=== PATIENT | female | born 1970 | race Caucasian/White ===

== ENCOUNTER → 2017-07-09 07:17 | Outpatient (CLI) | payer BC, SELFPAY ==
[2017-07-09 08:21] LABS: Alanine Aminotransferase 20 U/L (12-78); Albumin Level 3.6 gm/dL (3.4-5.0); Albumin/Globulin Ratio 1.1 (1.1-1.8); Alkaline Phosphatase 73 U/L (46-116); Anion Gap 11.3 mEq/L (5-15); Aspartate Amino Transferase 17 U/L (15-37); Bilirubin,Total 0.6 mg/dL (0.2-1.0); Blood Urea Nitrogen 11 mg/dL (7-18); Calcium 8.7 mg/dL (8.5-10.1); Carbon Dioxide 28 mmol/L (21.0-32.0); Chloride 106 mmol/L (98-107); Chol/HDL Ratio 2.4 (1-3.5); Cholesterol 139 mg/dL (140-200); Estimated Glomerular Filt Rate 90 ml/min (>60); Free Thyroxine Index 2.1 ug/dL (5.93-13.13); GFR (African American) 109 ML/MIN (>60); Globulin 3.4 gm/dl (1.3-3.2); Glucose 93 mg/dL (74-106); HDL Cholesterol 57 mg/dL (29-89); LDL Cholesterol 76 mg/dL (0-130); Potassium 4.3 mmoL/L (3.5-5.1); Sodium 141 mmol/L (136-145); T4 (Thyroxine) 6.3 ug/dl (4.7-13.3); Triglycerides 29 mg/dL (30-200); Triiodothryronine (T3) Uptake 34 % (31-39); VLDL Cholesterol 6 mg/dL (0-40)
[2017-07-09 08:43] LABS: Thyroid Stimulating Hormone 2.62 uIU/ml (0.358-3.740)
[2017-07-09 08:52] LABS: Basophils % 0.7 % (0.1-2.0); Eosinophils # 0.2 K/mm3 (0.0-0.4); Eosinophils % 2.9 % (0.1-12.0); Hematocrit 40.9 % (37.0-47.0); Hemoglobin 13.7 g/dL (12.2-16.2); Lymphocytes # 1.8 K/mm3 (0.7-4.5); Lymphocytes % 30.8 K/mm3 (10-50); Mean Corpuscular HGB Conc 33.4 g/dL (31.8-35.4); Mean Corpuscular Hemoglobin 30.5 pg (27.0-31.2); Mean Corpuscular Volume 91.4 fl (81-99); Mean Platelet Volume 9.2 fl (7.4-10.4); Monocytes # 0.3 K/mm3 (0.1-1.0); Monocytes % 5.8 % (1.7-9.3); Neutrophils # 3.6 K/mm3 (1.8-7.8); Neutrophils % 59.8 % (37.0-80.0); Platelet Count 152 K/mm3 (142-424); Red Blood Count 4.48 M/mm3 (4.20-5.40); Red Cell Distribution Width 12.4 % (11.5-17.5); White Blood Count 5.9 K/mm3 (4.8-10.8)
== END ==
PROVIDERS: Visit Provider Nurse Practitioner Obstetrics & Gynecology
DX: R53.83 Other fatigue (principal); Z01.419 Encounter for gynecological examination (general) (routine) without abnormal findings
CPT/HCPCS: 36415; 80053; 80061; 84436; 84443; 84479; 85025

== ENCOUNTER → 2018-03-05 10:56 | Outpatient (CLI) | payer BC, SELFPAY ==
--- NOTE | 2018-03-05 11:06 | XR_ITS ---
XR foot RT min 3V HISTORY: Pain following injury ITS.REASON: RT FOOT INJURY ORDERING PHYSICIAN: Kami Aquino PATIENT AGE: 47 years COMPARISON: None FINDINGS: No fracture or dislocation. No lytic or blastic change. There is normal mineralization.. The joint spaces are well-preserved. No significant degenerative/arthritic changes. No erosive changes evident. IMPRESSION: Negative, no acute finding
== END ==
PROVIDERS: PCP Nurse Practitioner Family; Visit Provider Nurse Practitioner Family
DX: S99.921A Unspecified injury of right foot, initial encounter (principal)
CPT/HCPCS: 73630

== ENCOUNTER → 2018-08-20 14:05 | Outpatient (POV) | payer BC, SELFPAY | PROVIDERS: Visit Provider Dermatology | DX: Z00.00 Encounter for general adult medical examination without abnormal findings (principal) ==

== ENCOUNTER → 2019-11-14 08:59 | Outpatient (CLI) | payer BC, SELFPAY ==
[2019-11-14 09:23] LABS: Basophils # 0.1 K/mm3 (0-0.2); Basophils % 1.3 % (0.1-2.0); Eosinophils # 0.2 K/mm3 (0.0-0.4); Eosinophils % 3.8 % (0.1-12.0); Hematocrit 34.8 % (37.0-47.0); Hemoglobin 11.9 g/dL (12.2-16.2); Lymphocytes # 1.5 K/mm3 (0.7-4.5); Lymphocytes % 30.3 % (10-50); Mean Corpuscular HGB Conc 34.1 g/dL (31.8-35.4); Mean Corpuscular Hemoglobin 32.3 pg (27.0-31.2); Mean Corpuscular Volume 94.5 fl (81-99); Mean Platelet Volume 10.3 fl (7.4-10.4); Monocytes # 0.2 K/mm3 (0.1-1.0); Monocytes % 4.6 % (1.7-9.3); Platelet Count 148 K/mm3 (142-424); Red Blood Count 3.69 M/mm3 (4.20-5.40); Red Cell Distribution Width 12.9 % (11.5-17.5); White Blood Count 4.9 K/mm3 (4.8-10.8)
[2019-11-14 10:27] LABS: Chloride 106 mmol/L (98-107); Potassium 4.2 mmoL/L (3.5-5.1); Sodium 140 mmol/L (136-145)
[2019-11-14 10:30] LABS: Alanine Aminotransferase 11 U/L (12-78); Albumin Level 3.6 g/dl (3.5-5.0); Albumin/Globulin Ratio 1.4 (1.1-1.8); Alkaline Phosphatase 60 U/L (38-126); Anion Gap 11.2 mEq/L (5-15); Aspartate Amino Transferase 21 U/L (14-36); Bilirubin,Total 0.5 mg/dl (0.2-1.3); Blood Urea Nitrogen 11 mg/dl (7-17); Calcium 8.9 mg/dl (8.4-10.2); Carbon Dioxide 27 mmol/L (22.0-30.0); Cholesterol 144 mg/dl (140-200); Estimated Glomerular Filt Rate 77 ml/min (>60); GFR (African American) 93 ML/MIN (>60); Globulin 2.6 g/dL (1.3-3.2); Glucose 90 mg/dl (74-100); Total Protein,Serum 6.2 g/dl (6.3-8.2); Triglycerides 50 mg/dl (30-150); VLDL Cholesterol 10 mg/dL (0-40)
[2019-11-14 10:31] LABS: Chol/HDL Ratio 2.3 (1-3.5); HDL Cholesterol 64 mg/dl (40-60)
[2019-11-14 10:41] LABS: Direct LDL Cholesterol 69.66 mg/dL (100-129)
== END ==
PROVIDERS: Visit Provider Nurse Practitioner Obstetrics & Gynecology
DX: Z01.419 Encounter for gynecological examination (general) (routine) without abnormal findings (principal)
CPT/HCPCS: 36415; 80053; 80061; 85025

== ENCOUNTER → 2021-01-28 16:08 | Outpatient (CLI) | payer BC, SELFPAY ==
--- NOTE | 2021-01-28 16:11 | MM_ITS ---
PROCEDURE: MM DIG SCREENING MAMM BI W/CAD Digital Breast Tomosynthesis Included CLINICAL INDICATION: SCREENING There is no personal or family history of breast cancer. COMPARISON: MG DMSB DIG MAMM-SCREEN INGRID from 06/18/2015 MG DMDBAV DIG MAMM-DX INGRID W ADD VIEWS from 07/06/2015 TECHNIQUE: Standard CC and MLO images and 3D Tomosynthesis was obtained. R2 CAD reviewed. FINDINGS: There is a diffusely dense and heterogenic parenchymal pattern and the findings are bilateral and symmetrical. Andrea synthesis imaging is very helpful in this type of dense breast parenchyma. There are no CAD markings. There is no suspicious lesion and no suspicious microcalcifications. IMPRESSION: Diffusely dense parenchymal pattern with no suspicious lesions seen BI-RAD Category: 1 Negative FOLLOW-UP: 1YR 1 Year Follow-up (A letter has been sent to the patient regarding results of the study.) Dictated by: Dr. Prem Ramirez MD 02/02/2021 10:40 Dr. Prem Ramirez MD in [place] 02/02/2021 10:40
== END ==
PROVIDERS: PCP Nurse Practitioner Family; Visit Provider Nurse Practitioner Family
DX: Z12.31 Encounter for screening mammogram for malignant neoplasm of breast (principal)
CPT/HCPCS: 77063; 77067

== ENCOUNTER → 2021-04-29 09:10 | Outpatient (CLI) | payer BC, SELFPAY ==
--- NOTE | 2021-04-29 09:16 | US_ITS ---
PROCEDURE INFORMATION: Exam: US Right Breast, Complete Exam date and time: 04/29/2021 9:16 AM Age: 50 years old Clinical indication: PT felt palp area RT breast-- PT states it is resolving TECHNIQUE: Imaging protocol: Complete ultrasound of all four quadrants of the Right breast and the retroareolar regions, including ultrasound of the axilla when performed. COMPARISON: MG MM DIG SCREENING MAMM BI W/CAD 01/28/2021 4:06 PM FINDINGS: Breast: Sonographic images of the right breast including the retroareolar region, all 4 quadrants and the axilla do not demonstrate any solid masses. Palpable abnormality in the 11 o'clock corresponds to a cluster of cysts with a combined dimension 0.4 cm. No architectural distortion or acoustical shadowing. No skin thickening or axillary adenopathy. IMPRESSION: Palpable abnormality in the right upper outer quadrant corresponds to minimal underlying subcentimeter cystic change.Further evaluation of a palpable abnormality should be based on clinical grounds regardless of radiographic findings or lack thereof. ASSESSMENT: BI-RADS Category 2: Benign
== END ==
PROVIDERS: PCP Nurse Practitioner Family; Visit Provider Nurse Practitioner Obstetrics & Gynecology
DX: N63.10 Unspecified lump in the right breast, unspecified quadrant (principal)
CPT/HCPCS: 76641

== ENCOUNTER → 2021-08-09 13:36 | Outpatient (POV) | payer BC, SELFPAY | PROVIDERS: Visit Provider Dermatology | DX: Z00.00 Encounter for general adult medical examination without abnormal findings (principal) ==

== ENCOUNTER 2022-02-25 22:40 | Emergency (ER) | payer BC, SELFPAY ==
[2022-02-25 22:41] VITALS: BP 135/86; PULSE 86; RESP 16; TEMP 37; O2SAT 99; BMI 24.0
--- NOTE | 2022-02-25 22:50 | XR_ITS ---
PROCEDURE INFORMATION: Exam: XR Left Ankle Exam date and time: 02/25/2022 11:07 PM Age: 51 years old Clinical indication: Injury or trauma; Other: Twisted ankle; Sprain or strain; Left; Additional info: Fall twisted ankle TECHNIQUE: Imaging protocol: Radiologic exam of the Left ankle. Views: 3 or more views. COMPARISON: No relevant prior studies available. FINDINGS: Bones/joints: No fractures. No blastic or lytic lesions. Small plantar calcaneal spur. The ankle mortise joint is well maintained. Small ankle joint effusion. The visualized hindfoot and midfoot are grossly well aligned. No hindfoot coalition. Soft tissues: No periostitis or osteolysis. Soft tissue swelling in the lateral and anterior ankle. No radiopaque foreign bodies. IMPRESSION: 1. No fracture or dislocation. 2. Soft tissue swelling in the lateral and anterior ankle with small ankle joint effusion.
--- NOTE | 2022-02-25 23:11 | HMH.EDLOEX ---
Discharge Plan Disposition Patient Disposition: Home, Self-Care Prescriptions Prescriptions: New meloxicam 15 mg tablet 15 mg PO DAILY Qty: 10 0RF No Action bupropion HCl [Wellbutrin XL] 300 mg tablet extended release 24 hr 300 mg PO QAM buspirone 5 mg tablet PO Mirena 20 mcg/24 hours (5 yrs) 52 mg intrauterine device INTRAUTERI Referrals Follow up/Referrals: Len Granger, [Staff Physician] - See instructions Lilo Fraire APRN [Primary Care Provider] - See instructions Leslye Lopez DPM [Staff Physician] - See instructions Clinical Impressions Clinical Impression: Ankle sprain and strain Instructions Patient Instructions: Sprain Discharge ED Provider: Felipe Church Lower Extremity Injury HPI General Chief Complaint: Extremity Injury, Lower Stated Complaint: 02/25@2200@home L ankle Time Seen by Provider: 02/25/22 23:11 Mode of Arrival: Wheelchair Source of Information: Patient Limitations: No Limitations Description of Symptoms (Recalled from ER Triage Doc. by RN): pt states missed last step and fell and lt ankle went sideways. pt c/o lt ankle pain History of Present Illness HPI Narrative: acute injury lt ankle with pain and swelling MD complaint: ankle injury Onset (ago): hour(s) Injury: Left: ankle Type of Injury: inversion Place: home Severity: moderate Context: fall Associated symptoms: snap/pop sensation, swelling and unable to bear weight Other symptoms: none Related Data Home Medications Medication Instructions Recorded Confirmed bupropion HCl 300 mg 24 hr tablet, 300 mg PO QAM 07/03/17 04/26/21 extended release (Wellbutrin XL) buspirone 5 mg tablet mg PO 11/04/19 04/26/21 levonorgestrel 20 mcg/24 hours (8 intrauterine 11/04/19 04/26/21 yrs) 52 mg intrauterine device (Mirena) Previous Rx's Medication Instructions Recorded meloxicam 15 mg tablet 15 mg PO DAILY #10 tabs 02/25/22 Allergies Allergy/AdvReac Type Severity Reaction Status Date / Time NO KNOWN ALLERGIES Allergy Uncoded 04/26/21 13:53 PFSH PFSH Social History Smoking Status: Never smoker alcohol intake: never substance use type: denies use current occupational status: employed Travel in the last 8 weeks: None household members: family housing: house ROS Obtained: Yes All systems reviewed & no additional complaints except as documented Physical Exam General General appearance: alert Head Head exam: normocephalic Eye Eye exam: Present PERRL and EOMI ENT ENT exam: Present mucous membranes moist Neck Neck exam: Present trachea midline Respiratory Respiratory exam: Absent respiratory distress Cardiovascular Cardiovascular exam: Present regular rate Expanded Lower Extremity Exam Left: Hip/Pelvis exam: Present pelvis stable Lower leg exam: Present Achilles tendon intact; Absent tenderness Ankle exam: Present tenderness and swelling; Absent full ROM or erythema Neurological Exam Neurological exam: Present alert, oriented X3 and CN II-XII intact Psychiatric Psychiatric exam: Present normal affect Skin Skin exam: Absent rash Medical Decision Making Medical Records Medical records reviewed: Yes I reviewed the patient's medical records. Socrates Inquiry Pt receiving controlled substance: No Vital Signs: 02/25/22 22:41 Temperature 98.6 F Temperature Source Oral Pulse Rate [Right] 86 Respiratory Rate 16 Blood Pressure [Right Arm] 135/86 Blood Pressure Mean [Right Arm] 102 02 Sat by Pulse Oximetry 99 Lab Data Lab results reviewed: Yes I reviewed the patient's lab results. Orders (Tests/Meds): ORDERS Category Date Time Status Ankle XR - Left minimum 3 Views [XR ankle LT min 3V] Exams 02/25/22 22:50 Completed Stat Radiology Data #1: Image(s): Ankle Image Reviewed: Yes I have reviewed radiologist's interpretation Preliminary Findings: No Fracture Seen Medical [facility]
[2022-02-25 23:42] VITALS: BP 130/80; PULSE 78; RESP 16; TEMP 36.6; O2SAT 97
== END 2022-02-25 23:53 | disposition home or self-care (01) ==
PROVIDERS: Emergency Provider Emergency Medicine; PCP Nurse Practitioner Family
DX: S93.402A Sprain of unspecified ligament of left ankle, initial encounter (principal); W01.0XXA Fall on same level from slipping, tripping and stumbling without subsequent striking against object, initial encounter
CPT/HCPCS: 73610; 99213; G0463

== ENCOUNTER → 2022-03-09 16:04 | Outpatient (CLI) | payer BC, SELFPAY ==
--- NOTE | 2022-03-09 16:16 | XR_ITS ---
FINAL REPORT CLINICAL HISTORY: SPRAIN, fall COMPARISON: 02/25/2022 FINDINGS: LEFT ANKLE Three views of the left ankle were obtained. There is no acute fracture or dislocation. The joint spaces and mortise are intact. There is soft tissue swelling by the lateral malleolus.. IMPRESSION: Lateral soft tissue swelling with no acute bony abnormality. Reviewed, Interpreted and Dictated by nAgel Bynum MD Transcribed by Delilah Mcdonald Authenticated and [facility]
== END ==
PROVIDERS: PCP Nurse Practitioner Family; Visit Provider Nurse Practitioner Family
DX: M25.572 Pain in left ankle and joints of left foot (principal); S93.412S Sprain of calcaneofibular ligament of left ankle, sequela; W19.XXXA Unspecified fall, initial encounter
CPT/HCPCS: 73610

== ENCOUNTER 2023-07-17 16:38 | Outpatient (CLI) | payer OTHER, SELFPAY ==
--- NOTE | 2023-07-17 16:40 | MM_ITS ---
PROCEDURE INFORMATION: Exam: MG Bilateral Screening 3D Mammography Exam date and time: 07/17/2023 4:41 PM Age: 53 years old Clinical indication: Screening examination; Additional info: Screening mammogram TECHNIQUE: Imaging protocol: Bilateral Screening tomosynthesis and 2D mammography including computer-aided detection (CAD) when performed. COMPARISON: 1. MG MM DIG SCREENING MAMM BI W/CAD 01/28/2021 4:06 PM 2. MG DMDBAV DIG MAMM-DX INGRID W ADD VIEWS 07/06/2015 1:54 PM 3. MG DMSB DIG MAMM-SCREEN INGRID 06/18/2015 8:31 AM 4. US BREAST RT COMPLETE 04/29/2021 9:23 AM FINDINGS: MAMMOGRAPHY: Breast composition: The breast is heterogeneously dense, which may obscure small masses. Mass: None. Architectural distortion: No new or suspicious architectural distortion. Calcifications: No new or suspicious calcifications are present Asymmetric density: No new or suspicious asymmetric density is present Skin thickening: None. Axillary adenopathy: None. IMPRESSION: No mammographic evidence of malignancy. Recommend annual screening mammography unless otherwise clinically indicated. ASSESSMENT: BI-RADS category 1: Negative.
== END 2023-07-17 23:59 ==
LOC: RAD 16:40
PROVIDERS: PCP Nurse Practitioner Family; Visit Provider Obstetrics & Gynecology
DX: Z12.31 Encounter for screening mammogram for malignant neoplasm of breast (principal)
CPT/HCPCS: 77063; 77067

== ENCOUNTER 2024-01-15 06:31 | Day surgery (SDC) | payer OTHER, SELFPAY ==
[2024-01-14 12:48] VITALS: BMI 24.0
[2024-01-15] MEDS: LACTATED RINGERS 1000ML 1,000 ML 25 ML IV (06:44)
[2024-01-15 06:46] VITALS: BP 109/77; PULSE 71; RESP 18; TEMP 36.2; O2SAT 100
--- NOTE | 2024-01-15 06:57 | EXP.ANES.CKL ---
[facility] Disclaimer: The information contained in this section may have been updated after the patient was seen, as this information can be updated by other users. Medical History Anxiety Depression Pneumonia Migraine Irritable bowel syndrome (IBS) Anxiety Surgical History Hx of section Family History Father Hypertension Prostate cancer Social History Smoking Status: Never smoker alcohol intake: never substance use type: denies use current occupational status: employed Travel in the last 8 weeks: None household members: family housing: house [facility] Anesthesia Checklist Patient Identification Patient Identification: Arm Band and Family Structural Data Admitted From: Home Planned Operative Procedure/s: Colonoscopy Consent for Planned Operative Procedure(s) Verified: Yes Verified Documents: Surgical Consent and History and Physical NPO Status Verified Time NPO: 00:00 Additional verifications Anesthesia Reactions: No Hx Blood Transfusions: No Blood Transfusion Reaction: No Cephalosporin Allergy: No Previous Colonoscopy: No Airway Assessment Mallampati Score:: Class I C-Spine Mobility Assessed: Yes TMJ Mobility Assessed: Yes Dentition: Good Dentition Neurological Assessment Level of Consciousness: Alert, Appropriate and Follows Commands Hx Seizures: No Numbness or tingling in extremities: No Anesthesia Plan Anesthesia Risk discussed: Yes ASA Class: I Anesthesia Type: MAC Preoperative Comments Pre-Operative Comments: No previous anesthesia. Screening.
--- NOTE | 2024-01-15 07:11 | HMH.SCOPE ---
Procedure: Date: 01/15/24 Patient Date of :: 1970 Procedure Performed:: Colonoscopy with polypectomy Indications:: Screening Performing Provider:: Alexy Car MD Referring Provider:: . Sedation:: Monitored anesthesia care Procedure:: After informed consent was obtained the patient was taken to the endoscopy suite. Sedation ensued after the patient was transferred to the left lateral decubitus position. Pulse, blood pressure, and oxygen saturation were monitored throughout the procedure. Digital rectal exam revealed no significant abnormality. The colonoscope was placed in position. The entire colon was evaluated. The colonoscope was carefully removed and the patient was transferred to recovery in stable condition. Please see findings and specimens below for detail. Findings:: Bowel preparation moderate Profound spasticity/lack of relaxation Significant tortuosity (particularly sigmoid) Mild scattered melanosis coli Submucosal lipoma at 55 cm Mild hemorrhoidal cushions Polyps (see specimens) Specimens:: Sessile polyp at 45 cm (cold biopsy forceps) Sessile polyp at 25 cm (cold snare) Recommendations:: Timing of repeat colonoscopy is pending pathology but likely be around 1-2 years with extended/alternate bowel preparation secondary to moderate bowel preparation, spasticity/lack of relaxation, and tortuosity. Consider gastroenterology evaluation secondary to chronic constipation. If gastroenterology consultation completed the patient's next colonoscopy will be deferred to their service. Complications:: No immediate Estimated blood obtained (mL): 1 Colonoscopy Component Colonoscopy Component Was a colonoscopy performed during today's procedure?: Yes Recommended follow up colonoscopy of at least 10 years?: No If no, follow up colonoscopy recommended in ___ years?: (See above) Reason for not recommending >/= 10 yr follow-up interval?: (See above)
[2024-01-15 07:16] VITALS: O2SAT 100
[2024-01-15 08:17] VITALS: BP 98/48; PULSE 70; RESP 16; TEMP 36.5; O2SAT 97
[2024-01-15 08:27] VITALS: BP 96/56; PULSE 71; RESP 16; O2SAT 98
[2024-01-15 08:37] VITALS: BP 94/55; PULSE 63; RESP 17; O2SAT 97
[2024-01-15 08:47] VITALS: BP 122/76; PULSE 68; RESP 18; O2SAT 97
== END 2024-01-15 08:47 | disposition home or self-care (01) ==
PROVIDERS: PCP Nurse Practitioner Family; Visit Provider Surgery
PROC: 0DJD8ZZ Inspection of Lower Intestinal Tract, Via Natural or Artificial Opening Endoscopic (ICD-10-PCS; CPT 45380; principal; 2024-01-15 07:30)
DX: Z12.11 Encounter for screening for malignant neoplasm of colon (principal); K63.89 Other specified diseases of intestine; D17.72 Benign lipomatous neoplasm of other genitourinary organ; K64.9 Unspecified hemorrhoids; D12.5 Benign neoplasm of sigmoid colon
CPT/HCPCS: 45380; 45385; J1611; J2704; J7120

== ENCOUNTER 2024-08-12 15:35 | Emergency (ER) | payer OTHER, SELFPAY ==
--- NOTE | 2024-08-12 15:44 | XR_ITS ---
PROCEDURE INFORMATION: Exam: XR Chest Exam date and time: 08/12/2024 5:21 PM Age: 54 years old Clinical indication: Pain; Chest pressure; Additional info: Cp palpitations, lh TECHNIQUE: Imaging protocol: Radiologic exam of the chest. Views: 1 view. COMPARISON: No relevant prior studies available. FINDINGS: Lungs: No consolidation. Pleural spaces: No pleural effusion. No pneumothorax. Heart/Mediastinum: No cardiomegaly. Bones/joints: Dextroconvex curvature of the spine. IMPRESSION: No acute findings.
--- NOTE | 2024-08-12 15:45 | ECG_ITS ---
APPROVED REPORT Exam: Resting ECG HR:76 bpm ECG Measurements Heart Rate 76 AXES HI 154 P 62 QRSd 85 QRS 55 QT 360 T 68 QTc 390 Conclusion Sinus rhythm Low voltage QRS Electronically signed by : DOMINIQUE TOLBERT, 08/12/2024 23:09:56
[2024-08-12 15:48] VITALS: BP 109/88; PULSE 82; RESP 19; TEMP 36.9; O2SAT 97; BMI 23.3
--- NOTE | 2024-08-12 16:05 | HMH.EDCP ---
Discharge Plan Disposition Patient Disposition: Home, Self-Care Chief Complaint: Chest Pain Prescriptions Prescriptions: No Action loratadine 10 mg tablet 10 mg PO DAILY Patient Comments: TAKE 1 TABLET BY MOUTH ONCE DAILY buspirone 15 mg tablet 15 mg PO BID Patient Comments: TAKE 1 TO 2 TABLETS BY MOUTH EVERY 12 HOURS NEEDED FOR INCREASED ANXIETY Trulance 3 mg tablet 3 mg PO DAILY Qty: 90 3RF bupropion HCl [Wellbutrin XL] 300 mg tablet extended release 24 hr 300 mg PO QAM Mirena 20 mcg/24 hours (5 yrs) 52 mg intrauterine device See Rx Instructions .ROUTE .COMPLEX Rx Instructions: see rx fluoxetine 20 mg tablet 20 mg PO Patient Comments: TAKE 1 TABLET BY MOUTH ONCE DAILY IN THE MORNING methylprednisolone 4 mg tablets,dose pack See Rx Instructions PO PER PKG DIR Qty: 21 0RF Rx Instructions: PO PER PKG DIR amoxicillin-pot clavulanate 875-125 mg tablet 1 tab PO BID 10 Days Qty: 20 0RF Referrals Follow up/Referrals: Lilo Fraire APRN [Primary Care Provider] - See instructions Activity Restrictions/Add. Instructions Additional Instructions/Restrictions: Call your family doctor to establish care for this visit to the emergency department and schedule follow-up within 48 hours to ensure improvement. If you have any worsening of your condition or any other concerning signs or symptoms, return to the emergency department or your primary care doctor for further evaluation. Follow-up with cardiology after having 48-hour Holter monitor for stress test etc. Clinical Impressions Clinical Impression: Palpitations Print Language Print Language: Georgian Discharge ED Provider: Jose Nguyen HPI General Chief Complaint: Chest Pain Stated Complaint: Sent by [facility] for abnormal EKG,Dizziness,nausea Time Seen by Provider: 08/12/24 15:44 History of Present Illness HPI narrative: Please note that above description of symptoms, in this electronic medical record under categorization of recalled from ER triage doctor by RN are reflective of an initial nursing assessment, however, is not reflective of my full history and physical exam that was personally taken and clarified. Consequentially, this preceding description of symptoms, which may include the patient's categorized chief complaint in the EMR, do not reflect my personal clinical impression, and the ultimate description of history of present illness and patient stated complaints should be deferred to this section of the note. Unless stated otherwise or congruent with this section of the note, additional signs, symptoms, or incongruence should be interpreted as inaccurate with my clinical impression. Related Data Home Medications ?Medication ?Instructions ?Recorded ?Confirmed bupropion HCl 300 mg 24 hr tablet, 300 mg PO QAM 07/03/17 08/04/24 extended release (Wellbutrin XL) levonorgestrel (Mirena) See Rx Instructions .Route .COMPLEX 11/04/19 08/04/24 buspirone 15 mg tablet 15 mg PO BID 07/06/23 08/04/24 loratadine 10 mg tablet 10 mg PO DAILY 07/06/23 08/04/24 fluoxetine 20 mg tablet 20 mg PO 02/01/24 08/04/24 Previous Rx's ?Medication ?Instructions ?Recorded plecanatide 3 mg tablet (Trulance) 3 mg PO DAILY #90 tabs 07/08/24 amoxicillin 875 mg-potassium 1 tab PO BID 10 days #20 tabs 08/04/24 clavulanate 125 mg tablet methylprednisolone 4 mg tablets in See Rx Instructions PO PER PKG DIR 08/04/24 a dose pack #21 tabs Allergies Allergy/AdvReac Type Severity Reaction Status Date / Time NO KNOWN ALLERGIES Allergy Other Uncoded 08/04/24 15:53 [facility] Disclaimer: The information contained in this section may have been updated after the patient was seen, as this information can be updated by other users. Medical History Anxiety Depression Pneumonia Migraine Irritable bowel syndrome (IBS) Anxiety Surgical History Hx of section Family History Father Hypertension Prostate cancer Social History Smoking Status: Never smoker alcohol intake: never substance use type: denies use current occupational status: employed Travel in the last 8 weeks?: None household members: family housing: house Have you lived/traveled outside US in past 30 days?: No Contact w/someone who lives/traveled outside US past 30 days?: No Exposure to someone with infectious disease in past 14 days?: No Do you have a fever (greater than 100.4 F or 38 C)?: No Have you tested positive for COVID-19?: No Exposed to someone with COVID-19 in past 14 days?: No Do you have a sore throat?: No Do you have a cough?: No Do you have any weakness?: No Do you have any diarrhea?: No Are you experiencing any unusual bleeding?: No Do you have any muscle aches/pain?: No Do you have any abdominal pain?: No Are you experiencing loss of taste or smell?: No Other Medical History Have you received the Flu Vaccine for this season: Yes Have you received the Pneumonia Vaccine: No ROS Obtained: Yes All systems reviewed & no additional complaints except as documented Physical Exam General General appearance: alert Neck Neck exam: Present trachea midline Chest Chest inspection: Present normal inspection and symmetric chest wall rise Respiratory Respiratory exam: Present normal lung sounds bilaterally; Absent respiratory distress, wheezes, stridor, accessory muscle use or prolonged expiratory phase Cardiovascular Cardiovascular exam: Present regular rate, normal rhythm and other (Pulses equal and symmetric in upper and lower extremities) Extremities Exam Extremities exam: Absent edema Neurological Exam Neurological exam: Present alert, oriented X3 and CN II-XII intact Skin Skin exam: Present warm and dry; Absent cyanosis, diaphoresis or pallor HEART Score HEART Score HEART Score assessment performed?: Yes History (anamnesis): Moderately suspicious ECG: Non-specific disturbance Age: 45-65 years Risk factors: No known risk factors Troponin: </= normal limit HEART Score: 3 Critical Care Critical Care Time Critical Care Time: No Medical Decision Making Medical Records Medical records reviewed: Yes I reviewed the patient's medical records. Socrates Inquiry Pt receiving controlled substance: No Socrates was queried for this patient: No Vital Signs Vital Signs: 08/12/24 15:48 08/12/24 16:38 08/12/24 17:01 Temperature 98.4 F Temperature Source Oral Pulse Rate 82 79 Pulse Rate [Left Radial] 82 Respiratory Rate 19 12 Blood Pressure 109/88 L 126/85 Blood Pressure [Right Arm] 109/88 L Blood Pressure Mean [Right Arm] 95 02 Sat by Pulse Oximetry 97 99 98 Oxygen Delivery Method Room Air Room Air Lab Data Labs: Lab Results 08/12/24 16:12: WBC 9.6, RBC 4.99, Hgb 14.3, Hct 42.3, MCV 84.8, MCH 28.7, MCHC 33.8, RDW 14.2, Plt Count 202, MPV 11.2 H, Neut % (Auto) 72.3, Lymph % (Auto) 18.7, [place] % (Auto) 6.0, Eos % (Auto) 1.7, Baso % (Auto) 1.0, Neut # (Auto) 7.0, Lymph # (Auto) 1.8, [place] # (Auto) 0.6, Eos # (Auto) 0.2, Baso # (Auto) 0.1, Sodium 139, Potassium 3.7, Chloride 107, Glucose 90, Calcium 9.4, Magnesium 2.2, Total Bilirubin 0.6, AST 27, ALT 19, Alkaline Phosphatase 125, Troponin I < 0.01, Lipase 93, TSH 2.20, Thyroxine (T4) 9.9, HCG, Quant < 2 08/12/24 16:12 08/12/24 16:12 Response Orders (Tests/Meds): ORDERS Category Date Time Status XR chest portable Stat Exams 08/12/24 15:44 Taken Complete Blood Count Auto Diff Stat Lab 08/12/24 16:12 Completed Comprehensive Metabolic Panel Stat Lab 08/12/24 16:12 Results HCG,Quantitative Stat Lab 08/12/24 16:12 Completed HIV Combo Stat Lab 08/12/24 16:12 Received Hepatitis C Ab Qual. W/ RFX Stat Lab 08/12/24 16:12 Received Lipase Stat Lab 08/12/24 16:12 Results Magnesium Stat Lab 08/12/24 16:12 Results PT INR [Prothrombin Time INR] Stat Lab 08/12/24 16:12 Received PTT [Activated Partial Thrombo Time] Stat Lab 08/12/24 16:12 Received T4 (Thyroxine) Stat Lab 08/12/24 16:12 Results TSH [Thyroid Stimulating Hormone] Stat Lab 08/12/24 16:12 Results Troponin I Q3H Lab 08/12/24 18:45 Ordered Troponin I Q3H Lab 08/12/24 21:45 Ordered Troponin I Stat Lab 08/12/24 16:12 Results MDM Narrative Medical Decision Narrative: 54-year-old female history of anxiety presenting with palpitations and neck pain. She states that she has had multiple episodes over the past few months where she has had palpitations and felt like chest heaviness and neck pain. Today, she was sitting at work doing nothing in particular when she had sudden palpitations, [employer] Watch told her that her heart rate was in the 150s. She had nausea, diaphoresis, tightness in both sides of her neck. No syncope, vomiting, radiation of the neck pain, dysphagia, dyne aphasia, difficulty breathing, shortness of breath, etc. Went to PCP today, PCP got EKG and sent patient emergently to the emergency department for concern for MN. History was obtained via conversation with patient and primary care provider. On arrival, patient hemodynamically stable, alert, oriented x4, appropriate, GCS 15, moving all extremities spontaneously, pupils equal and reactive to light. Full physical exam performed and significant for very clinically well-appearing female no acute distress. Lungs are clear, cardiac exam normal. No lower extremity edema. Speaking full sentences, nontachycardic, normotensive and in no acute distress currently asymptomatic. Differential includes anxiety, panic, CAD, ACS, MN, PE, pneumothorax, endocrinologic abnormality, metabolic abnormality, among others. No interventions given because patient currently asymptomatic. Patient placed on continuous cardiac monitoring and continuous pulse ox with initial blood pressure 109/88, heart rate 82, saturation 97% on room air. Independent interpretation of EKG shows sinus rhythm 76 bpm with UT 154, QRS 85, QTc 390. No acute ischemic change, patient does have Q waves in V1 and V2 suspicious for electrical anomaly versus previous ischemic change. No reciprocal changes are present. Normal axis. Workup independently interpreted and significant for nonactionable hematologic labs including troponin and thyroid studies. On independent interpretation of imaging, no acute cardiopulmonary airspace disease on chest x-ray. See radiology read for full review of final results. Heart score 3. On reevaluation, patient resting comfortably, no recurrences of her symptoms and still very clinically well-appearing. Given patient presentation, workup, history, this most likely represents idiopathic palpitations, could potentially be stable angina in the setting of tachycardia versus arrhythmia. Holter monitor to be placed. Patient already has follow-up with cardiology outpatient and I feel she is appropriate for outpatient with low heart score and no clinical symptoms currently. Because patient at baseline without signs or symptoms of clinical decompensation, deemed appropriate for discharge. Results were relayed to patient who voiced understanding and were agreeable to outpatient management and follow up. I discussed my clinical impression with patient and answered all questions. At this time, the evidence for any other entities in the differential is insufficient to warrant any further testing or ED observation. This was explained as well. Advisory was given that persistent or worsening symptoms require further evaluation. I confirmed the understanding of this discussion. Occupational Therapist'S Assistant disclaimer Much of this encounter note is an electronic pulley worker spoken language to printed text. Electronic pulley worker of the spoken language may permit errors. Although I have reviewed the note, some errors may still exist.
[2024-08-12 16:21] LABS: Basophils # 0.1 K/mm3 (0-0.2); Eosinophils # 0.2 Kmm3 (0.0-0.4); Eosinophils % 1.7 % (0.1-12.0); Hematocrit 42.3 % (37.0-47.0); Hemoglobin 14.3 g/dL (12.2-16.2); Immature Granulocytes # 0.03 10^3uL; Immature Granulocytes % 0.3 %; Lymphocytes # 1.8 K/mm3 (0.7-4.5); Lymphocytes % 18.7 % (10-50); Mean Corpuscular HGB Conc 33.8 g/dL (31.8-35.4); Mean Corpuscular Hemoglobin 28.7 pg (27.0-31.2); Mean Corpuscular Volume 84.8 fl (81-99); Mean Platelet Volume 11.2 fl (7.4-10.4); Monocytes # 0.6 K/mm3 (0.1-1.0); Neutrophils % 72.3 % (37.0-80.0); Nucleated Red Blood Cells # 0 10^3/uL; Nucleated Red Blood Cells % 0 %; Platelet Count 202 K/mm3 (142-424); Red Blood Count 4.99 M/mm3 (4.20-5.40); Red Cell Distribution Width 14.2 % (11.5-17.5); Red Cell Distribution Width-SD 44.1 fL; White Blood Count 9.6 K/mm3 (4.8-10.8)
[2024-08-12 16:35] LABS: Activated Partial Thrombo Time 24.9 seconds (22.8-30.6); Alanine Aminotransferase 19 U/L (12-78); Alkaline Phosphatase 125 U/L (38-126); Aspartate Amino Transferase 27 U/L (14-36); Bilirubin,Total 0.6 mg/dl (0.2-1.3); Calcium 9.4 mg/dl (8.4-10.2); Chloride 107 mmol/L (98-107); Glucose 90 mg/dl (74-100); INR 0.95 (0.9-1.1); Lipase 93 U/L (23-300); Magnesium 2.2 mg/dl (1.6-2.3); Potassium 3.7 mmoL/L (3.5-5.1); Prothrombin Time 10.7 seconds (10.1-12.5); Sodium 139 mmol/L (136-145)
[2024-08-12 16:38] VITALS: BP 109/88; PULSE 82; O2SAT 99
[2024-08-12 16:53] LABS: T4 (Thyroxine) 9.9 ug/dl (5.53-11.0)
[2024-08-12 17:00] LABS: Troponin I < 0.01 ng/ml (0.00-0.034)
[2024-08-12 17:01] VITALS: BP 126/85; PULSE 79; RESP 12; O2SAT 98
[2024-08-12 17:24] LABS: HCG,Quantitative < 2 mIU/ml (0-5.42)
[2024-08-12 17:26] LABS: Albumin Level 4.9 g/dl (3.5-5.0)
[2024-08-12 17:28] LABS: Blood Urea Nitrogen 12 mg/dl (7-17); Creatinine Clearance Estimated 85 mL/min (50-200); Estimated Glomerular Filt Rate 75 ml/min (>60); GFR (African American) 91 ML/MIN (>60)
[2024-08-12 17:29] LABS: Albumin/Globulin Ratio 1.8 (1.1-1.8); Anion Gap 10.7 mEq/L (5-15); Carbon Dioxide 25 mmol/L (22.0-30.0); Globulin 2.8 g/dL (1.3-3.2); Total Protein,Serum 7.7 g/dl (6.3-8.2)
[2024-08-12 17:30] VITALS: BP 122/88; PULSE 87; RESP 14; O2SAT 99
--- NOTE | 2024-08-12 17:32 | PC.NURSE ---
call made to respiratory for holter monitor placement for 48 hours.
[2024-08-12 18:06] VITALS: BP 122/88; PULSE 87; RESP 18; TEMP 36.6; O2SAT 97
[2024-08-12 18:13] LABS: HIV Combo NEGATIVE (Negative)
[2024-08-12 18:21] LABS: Hepatitis C Ab Qual. W/ RFX NEGATIVE (Negative)
== END 2024-08-12 18:09 | disposition home or self-care (01) ==
PROVIDERS: Emergency Provider Emergency Medicine; PCP Nurse Practitioner Family
DX: R00.2 Palpitations (principal); R42 Dizziness and giddiness; R11.0 Nausea; Z11.59 Encounter for screening for other viral diseases; Z11.4 Encounter for screening for human immunodeficiency virus [HIV]
CPT/HCPCS: 71045; 80053; 83690; 83735; 84436; 84443; 84484; 84702; 85025; 85610; 85730; 86803; 87389; 93005; 93225; 93227; 99284

== ENCOUNTER 2024-08-21 10:47 | Outpatient (CLI) | payer OTHER, SELFPAY | END 2024-08-21 23:59 | disposition home or self-care (01) | LOC: RT 10:58 | PROVIDERS: PCP Nurse Practitioner Family; Visit Provider Nurse Practitioner | DX: R00.2 Palpitations (principal); R94.31 Abnormal electrocardiogram [ECG] [EKG] | CPT/HCPCS: 93270 ==

== ENCOUNTER 2024-08-27 08:14 | Outpatient (CLI) | payer OTHER, SELFPAY ==
--- NOTE | 2024-08-27 | CA_ITS ---
APPROVED REPORT Exam: Exercise Treadmill Technologist: Shanice Palomo Ht: 5 ft 4 in Wt: 142 lbs BSA: 1.69 m2 Medical History Medications: Wellbutrin XL, Buspirone, Fluocetine, Mirena, Loratadine, Toprol XL Stress Test Details Test: Exercise stress testing was performed using a Eleazar protocol. HR Resting HR: 59 bpm Max Heart Rate (APMHR): 168 bpm Max HR Achieved: 148 bpm Target HR (85% APMHR): 143 bpm % of APMHR: 88 Recovery HR: 90 bpm HR response to stress: Normal HR response to stress BP Resting BP: 128.0/83.0 mmHg Max BP: 152.0/98.0 mmHg Recovery BP: 124.0/79.0 mmHg BP response to stress: Normal blood pressure response to stress. ECG Resting ECG: NSR Stress EC mm horizontal ST depression Clinical Exercise duration: 12.07 min Highest Stage Achieved: IV Exercise capacity: 12.1 METs Stress ECG Conclusion Max HR: 164 % of PM: 100 Max BP: 152/98 METs: 12.1 Symptoms: (+) SOA. Arrhythmias/Ectopy: Rare PVC. ST-T Changes: [address] depression Conclusion: Average exercise capacity. Abnormal stress due to EKG changes, suggestive of possible ischemia. Electronically signed by : Zoe Mccabe MD 08/27/2024 13:28:47
--- NOTE | 2024-08-27 08:26 | CA_ITS ---
APPROVED REPORT EXAM: Comprehensive 2D, Doppler, and color-flow Echocardiogram Certified Ski Patroller: JOHN Vuong, RVS Ht: 5 ft 4 in Wt: 142lbs BSA: 1.69 BP: 139/73 mmHg Indications: Palpitations, Abn EKG, PFO Echo Enhancing Agent Indication: Rule Out Septal Defect Agent(s) / Amount(s) Used: Agitated Saline 20 cc Comments: Positive 3 phase bubble study 2D Dimensions Left Atrium 2.95 cm LA Volume 46.00 mL LA Volume Index 26.60 mL/m2 (M/F) 16-34 M-Mode Dimensions RVDd 2.95 cm (0.9-2.6) LVDd 5.26 cm (3.5-5.7) LVDs 3.43 cm (3.5-5.7) IVSd 0.77 cm (0.6-1.1) PWd 0.64 cm (0.6-1.1) EF (Teich) 63.50% EPSs 0.64 cm FS 34.80% EDV (Teich) 133.00 mL ESV (Teich) 48.50 mL LV Diastology E Decel Time 160 (160-240 msec) E/A Ratio 0.97 Aortic Valve RICK Index 1.58 cm2/m2 AoV Peak Dov. 101.0 (50-130 cm/s) AO Peak GR. 4.10 mmHg AO Mean GR. 2.00 (<5 mmHg) AO VTI 20.4 (18-25 cm) RICK (VTI) 2.73 (2.5-4.5 cm2) Mitral Valve MV A Velocity 86.0 (40-130 cm/s) E/A Ratio 0.97 Tricuspid Valve TR P. Velocity 209.00 cm/s RAP Estimate 10.00 mmHg RVSP 27.50 mmHg Left Ventricle The left ventricle is normal size. The left ventricular systolic function is low normal. There is normal left ventricular wall thickness. There is normal LV segmental wall motion. The left ventricular diastolic function is normal. LVEF is 50%. Right Ventricle The right ventricle is normal size. The right ventricular systolic function is normal. Atria The left atrium size is normal. The right atrium size is normal. Agitated saline administration demonstrates presence of interatrial shunt. Aortic Valve The aortic valve opens well. There is no aortic valvular stenosis. No aortic regurgitation is present. Mitral Valve The mitral valve is normal in structure. No evidence of mitral valve stenosis. Mild mitral regurgitation. Tricuspid Valve Tricuspid valve is grossly normal in structure and function. Mild tricuspid regurgitation. RVSP 20-25 mmHg. Pulmonic Valve The pulmonary valve is normal in structure. Trace pulmonic regurgitation. Great Vessels The aortic root is normal in size. IVC is normal in size and collapses >50% with inspiration. Pericardium There is no pericardial effusion. Other Information Study Quality: Fair Conclusion Normal biventricular size and systolic function (LVEF 50%). Mild MR, mild TR. Agitated saline administration demonstrates presence of interatrial shunt. Electronically signed by : Zoe Mccabe MD 09/04/2024 00:19:20
== END 2024-08-27 23:59 | disposition home or self-care (01) ==
LOC: RT 08:15
PROVIDERS: PCP Nurse Practitioner Family; Visit Provider Nurse Practitioner Family
DX: I08.1 Rheumatic disorders of both mitral and tricuspid valves (principal); Q21.12 Patent foramen ovale; R94.31 Abnormal electrocardiogram [ECG] [EKG]
CPT/HCPCS: 93017; 93018; 93306

== ENCOUNTER 2024-09-17 06:16 | Outpatient (CLI) | payer OTHER, SELFPAY ==
--- NOTE | 2024-09-17 | CA_ITS ---
APPROVED REPORT Exam: Exercise Treadmill Technologist: Lainey Wise Ht: 5 ft 4 in Wt: 143 lbs BSA: 1.70 m2 HR: 50 bpm BP: 128/73 mmHg Stress Test Details Test: Exercise stress testing was performed using a Eleazar protocol. HR Resting HR: 50 bpm Max Heart Rate (APMHR): 168.837576 bpm Max HR Achieved: 147 bpm Target HR (85% APMHR): 142.309737 bpm % of APMHR: 87.50 Recovery HR: 85 bpm BP Resting BP: 128.0/73.0 mmHg Max BP: 170.0/94.0 mmHg Recovery BP: 138.0/77.0 mmHg ECG Resting ECG: Sinus rhythm,no ischemia or ectopy Stress ECG Conclusion Symptoms: None Arrhythmisa/Ectopy: None ST-T Changes: None Electronically signed by : Zoe Mccabe MD 09/17/2024 13:05:54
--- OUTSIDE RECORDS SUMMARY | 2024-09-17 06:19 | XMS_ITS | Clinical Summary ---
Author Organization Healthcare Address [address] [place] [address] Care Team Providers Care Vp Of Digital Marketing Name Role Phone Unavailable Primary Care Provider Unavailabl e Allergies No known active allergies Medications buPROPion XL (Wellbutrin XL) 300 MG 24 hr tabletIndication s:Major Depressive Disorder Take 300 mg by mouth 1 (one) time each day. Do not crush, chew, or split. Active dicyclomine (Bentyl) 10 MG capsuleIndicatio ns:Irritable Bowel Syndrome Take 10 mg by mouth 4 (four) times a day. Active Rimegepant Sulfate (Nurtec) 75 MG tablet dispersibleIndic ations:Migraine Take by mouth if needed. Active Active Problems No known active problems Social History Tobacco Use Types Packs/Day Years Used Date Smoking Tobacco: Never Passive Smoke Exposure: Never Smokeless Tobacco: Never Tobacco Cessation:Counseling Given: Not Answered PHQ-2 Answer Date Recorded Patient Health Questionnaire-2 Score 0 02/27/2022 Comments Unknown Sex and Gender Information Value Date Recorded Sex Assigned at Not on file Legal Sex Female 3:07 PM EST Gender Identity Not on file Sexual Orientation Not on file Last Filed Vital Signs Vital Sign Reading Time Taken Comments Blood Pressure 120/86 02/27/2022 3:20 PM EST Pulse 88 02/27/2022 3:20 PM EST Temperature 36.8 C (98.2 F) 02/27/2022 3:20 PM EST Respiratory Rate 20 02/27/2022 3:20 PM EST Oxygen Saturation 99% 02/27/2022 3:20 PM EST Inhaled Oxygen Concentration - - Weight 68.2 kg (150 lb 5.7 oz) 02/27/2022 3:20 P M EST Height 162.6 cm (5' 4 ) 02/27/2022 3:20 PM EST Body Mass Index 25.81 02/27/2022 3:20 PM EST Plan of Treatment Health Maintenance Due Date Last Done Comments [facility]-HIV Screening 1972 [facility]-Hepatitis C Screening 1972 [facility]-Infant/Child/Adol SDOH Screenings 1972 [facility]- SDOH Screenings 1990 [facility]-Adult SDOH Screenings 1990 [facility]-DTaP,Tdap,and Td Vaccine s (1 - Tdap) 1991 [facility]-Hepatitis B Vaccines (1 of 3 - 19+ 3-dose series) 1991 [facility]-Pap Smear 1993 [facility]-Cervical Cancer Screening 2002 [facility]-HPV/Cotest 2002 CT Colonography 2017 Colonoscopy 2017 FIT-DNA 2017 FIT 2017 FOBT 2017 Sigmoidoscopy 2017 [facility]-Colorectal Cancer Screening 2017 [facility]-Breast Cancer Screening 2022 [facility]-Pneumococcal Vaccine: 50 + Years (1 of 1 - PCV) 2022 [facility]-Zoster Vaccines (1 of 2) 2022 [facility]-Depression Screening 02/27/2023 02/27/2022 [id number] Vaccine (1 - 20 24-25 season) 2023 [facility]-Influenza Vaccine ([place]as[place] n Ended) 2024 [facility]-Obesity Intervention Completed 02/27/2022 HPV Vaccines Aged Out No longer eligi ble based on patient's age to complete this topic [facility]-HIB Vaccines Aged Out No longer e ligible based on patient's age to complete this topic [facility]-Hepatitis A Vaccines Aged Out No longer eligible based on patient's age to complete this topic [facility]-IPV Vaccines Aged Out No longer e ligible based on patient's age to complete this topic [facility]-Rotavirus Vaccines Aged Out No lo nger eligible based on patient's age to complete this topic Insurance [employer]
--- NOTE | 2024-09-17 06:30 | NM_ITS ---
APPROVED REPORT Exam: Nuclear Stress Test Indication: SOB, Palpitations, Family history, Abnormal GXT Patient Location: Outpatient Stress Tech: Lainey Wise IN Tech:Jyoti Chakraborty, ARRT, RT (R)(N) Ht: 5 ft 4 in Wt: 140 lbs Bra Size: 34B HR: 53 bpm BP: 128/73 mmHg BSA: 1.68 m2 TID: 1.04 BMI: 24.0 History: SOB, Palpitations, Family history, Abnormal GXT Procedure: Patient exercised on Eleazar protocol 11:22 minutes and sec, resting heart rate 53 bpm, resting blood pressure 128/73 mmHg, with exercise maximum heart rate achived was 148 bpm which is 88 % of the maximum predicted heart rate and blood pressure was 170/94 mmHg. Test was stopped due to SOB. Patient denied any complaint of chest pain. Patient has Average exercise capacity, achieved 12.1 METs of workload on treadmill, the blood pressure response to exercise was Normal. Cardiac Stress and Resting SPECT Images: Cardiac Stress and Resting SPECT images were obtained using technetium 99m Myoview 32.4 mCi stress and 10.48 mCi at rest. Resting and stress imaging in supine and prone positions demonstrate a small sized, moderate, reversible perfusion defect in the basal inferior LV wall. Gated imaging demonstrates low normal global LV systolic function. LVEF is calculated at 50%. Conclusion: Small sized, moderate, reversible perfusion defect in the basal inferior LV wall. Findings are suggestive of reversible ischemia. Gated imaging demonstrates low normal global LV systolic function. LVEF is calculated at 50%. Electronically signed by : Zoe Mccabe MD 09/17/2024 12:56:05
[2024-09-17] MEDS: SODIUM CHLORIDE 0.9% 10ML SYR (RAD ONLY) 10 ML IV ×3 (08:37)
[2024-09-17] MEDS: ISOTOPE MYOVIEW (PER STUDY) 1 DOSE IV (08:37)
== END 2024-09-17 23:59 | disposition home or self-care (01) ==
LOC: RAD 06:17
PROVIDERS: PCP Nurse Practitioner Family; Visit Provider Nurse Practitioner
DX: R94.39 Abnormal result of other cardiovascular function study (principal); R94.31 Abnormal electrocardiogram [ECG] [EKG]; R00.2 Palpitations; R06.02 Shortness of breath
CPT/HCPCS: 78452; 93017; 93018; A9502

== ENCOUNTER 2024-10-06 07:26 | Outpatient (CLI) | payer OTHER, SELFPAY ==
[2024-10-06] VITALS (7 sets, daily range): BP systolic 109–137; BP diastolic 43–89; PULSE 54–69; RESP 16–18; TEMP 36.1; O2SAT 99–100; BMI 24.5
--- OUTSIDE RECORDS SUMMARY | 2024-10-06 07:28 | XMS_ITS | Clinical Summary ---
Author Organization Healthcare Address [address] [place] [address] Care Team Providers Care Wood Repatcher Name Role Phone Unavailable Primary Care Provider [...] of 2) 2022 [facility]-Depression Screening 02/27/2023 02/27/2022 [id number] Vaccine (1 - 20 24-25 season) 2023 [...]
[2024-10-06] MEDS: diphenhydrAMINE 50MG/ML VIAL 25 MG IV (08:16)
[2024-10-06] MEDS: FAMOTIDINE 20MG/2ML VIAL 20 MG IV (08:16)
[2024-10-06 08:26] LABS: Urine Pregnancy, HCG Qual. Negative (Negative)
--- NOTE | 2024-10-06 08:30 | CT_ITS ---
APPROVED REPORT Rail Filler: CLINICAL INDICATION Chest Pain, abnormal nuclear stress test TECHNIQUE Image Acquisition: A 128 slice MDCT scanner ([employer]wo[employer]a View) was used for data acquisition. A noncontrast coronary calcium scan was performed. A CT attenuation threshold of 130 Hounsfield units (HU) was used for the detection of calcium in contiguous voxels of 1 sq mm in area to be counted as individual lesions. Bolus tracking in the ascending aorta with a threshold of 180 HU was performed. Immediately afterwards, ECG synchronized cardiac CT was then performed from the cardiac base to apex using retrospective gating with ECG tube current modulation. A total of 85 mL of Isovue 370 mg/mL contrast medium was administered at 5 mL/sec followed by a saline flush using a biphasic injection protocol. A tube voltage of 120 KVp was used. The patient no medications prior to the cardiac CT. The average heart rate at the time of acquisition was 51 bpm and regular. Image Reconstruction Transaxial images were reconstructed at 0.67 mm slide thickness. Data was reviewed interactively on an advanced workstation capable of 2 and 3-dimensional displays in all conventional reconstruction formats, including multiplanar reformations, maximum intensity projections, curved multiplanar reformations, and volume rendered reconstructions. When applicable, selected routine images describing the relevant coronary anatomy and pathology were saved and sent to PACS. Complications None Technical Quality Overall image quality was good. Coronary artery opacification was adequate. Total DLP (Dose-Length Product) is 2162.0 mGy-cm. The reported value represents the total of one or more individual components during the CT acquisition of this date and at this time, and as such, the same value may appear in more than one CT report depending on the interpreting/reporting physicians. COMPARISON None FINDINGS CT Coronary Calcium Scoring LMA (Left Main Artery) = 0 LAD (Left Anterior Descending) = 0 LCX (Left Coronary Circumflex) = 0 RCA (Right Coronary Artery) = 0 Total Calcium Score = 0 using the AJ-130 method. The interpretation of the calcium heart score is based on the following continuum*: 0 = no calcified plaque detected (risk of coronary artery disease is very low ??? less than 5%) 1-10 = calcium detected in extremely minimal levels (risk of coronary diseases is still low ??? less than 10%) 11-100 = mild levels of plaque detected with certainty (mild or minimal narrowing of heart arteries is likely) 101-400 = definite,at least moderate levels of plaque detected (relatively high risk of a heart attack within 3-5 years) >401-999 = extensive levels of plaque detected (high risk of heart attack, high levels of vascular disease are present, high likelihood of at least one significant coronary narrowing) *The calcium heart score quantifies the burden of coronary calcification/plaque in the coronary arteries. The calcium heart score is not able to evaluate the presence or burden of non-calcified (i.e. soft) plaque. There is no identifiable calcification in the aortic valve, mitral annulus or mitral valve, pericardium, or myocardium. Coronary CT Angiography The coronary arterial system is right dominant. Quantitative Stenosis Grading: Left Main (LM): The left main originates normally from the left sinus of Valsalva. The LM bifurcates into the left anterior descending artery and left circumflex artery. The LM is patent with no evidence of atherosclerosis. Left Anterior Descending (LAD) and Diagonal Branches: The LAD gives off 3 diagonal branch(es). The LAD and its branches are patent with no evidence of atherosclerosis. There is no evidence of LAD-myocardial bridge. Left Circumflex (LCX) and Obtuse Marginals (OM): The LCX gives off 1 Obtuse Marginal (OM) branch(es). The LCX and its branches are patent with no evidence of atherosclerosis. Right Coronary Artery (RCA): The RCA originates normally from the right sinus of Valsalva. The RCA gives off a posterior descending artery (PDA) and posterolateral (PL) branches. The RCA and its branches are patent with no evidence of atherosclerosis. Non-Coronary Cardiac Findings: Analysis of the left ventricular (LV) structure and function was performed after 3-D reconstruction of the LV from axial images, with user-corrected automatic contouring for assessment of LV volumes and user-defined reconstruction from oblique planes for measurement of 3-D cardiac structure and function. -The left ventricle systolic function is normal. -There is no left atrial appendage filling defect. Two right pulmonary veins and two left pulmonary veins drain normally into the left atrium. -No pericardial thickening or calcification. -Central and branch pulmonary arteries in the [id number] are unremarkable. -Thoracic aorta within the visualized thoracic aortic-branches in the [id number] is unremarkable. Extracardiac Structures No significant extra-cardiac findings. Note, however, that this study is focused on the cardiac findings. IMPRESSION - Absence of coronary calcification with an Agatston score = 0 using the AJ-130 method. -No evidence of significant flow-limiting atherosclerosis of the coronary arteries. -No evidence of coronary anomalies or myocardial bridges. -CAD-RADS 0. Management recommendations per ACC/AHA guidelines*, as clinically appropriate. *Recommendations: CAD RADS 0: Reassurance. Consider non-atherosclerotic causes of chest pain. CAD RADS 1: Consider non-atherosclerotic causes of chest pain. Consider preventive therapy and risk factor modification. CAD RADS 2: Consider non-atherosclerotic causes of chest pain. Consider preventive therapy and risk factor modification, particularly for patients with nonobstructive plaque in multiple segments. CAD RADS 3: Consider further functional testing. Consider symptom-guided anti-ischemic and preventive pharmacotherapy as well as risk factor modification per published guideline statements. CAD RADS 4A: Consider further functional testing or invasive coronary angiography with revascularization per published guideline statements. Consider symptom-guided anti-ischemic and preventive pharmacotherapy as well as risk factor modification per published guideline statements. CAD RADS 4B: Invasive coronary angiography recommended with revascularization per published guideline statements. Consider symptom-guided anti-ischemic and preventive pharmacotherapy as well as risk factor modification per published guideline statements. CAD RADS 5: Consider invasive angiography and/or viability assessment with revascularization per published guideline statements. Consider symptom-guided anti-ischemic and preventive pharmacotherapy as well as risk factor modification per published guideline statements. CRITICAL RESULT None COMMUNICATION Per this written report The coronary and cardiac findings of this CCTA were reviewed, reported, and signed by Parth Mccabe MD ([facility] Associate) Conclusion Electronically signed by : Zoe Mccabe MD 10/07/2024 00:45:46
[2024-10-06 09:19] LABS: Chloride 99 mmol/L (98-107); Potassium 3.8 mmoL/L (3.5-5.1); Sodium 137 mmol/L (136-145)
[2024-10-06 09:22] LABS: Blood Urea Nitrogen 10 mg/dl (7-17); Creatinine Clearance Estimated 75 mL/min (50-200); Estimated Glomerular Filt Rate 66 ml/min (>60); GFR (African American) 80 ML/MIN (>60)
[2024-10-06 09:23] LABS: Anion Gap 11.8 mEq/L (5-15); Calcium 8.7 mg/dl (8.4-10.2); Carbon Dioxide 30 mmol/L (22.0-30.0); Glucose 96 mg/dl (74-100)
[2024-10-06] MEDS: METHYLPREDNISOLONE SOD SUCC 125MG VIAL 125 MG IV (09:38)
[2024-10-06] MEDS: SODIUM CHLORIDE 0.9% 10ML SYR (RAD ONLY) 10 ML IV (09:45)
[2024-10-06] MEDS: 0.9 % SODIUM CHLORIDE 50 ML VIAL IV (09:45)
[2024-10-06] MEDS: IOPAMIDOL-370 (76%);100ML BOTTLE 85 ML IV (09:45)
== END 2024-10-06 10:00 | disposition home or self-care (01) ==
PROVIDERS: PCP Nurse Practitioner Family; Visit Provider Nurse Practitioner
DX: R94.31 Abnormal electrocardiogram [ECG] [EKG] (principal); R94.39 Abnormal result of other cardiovascular function study; R07.9 Chest pain, unspecified; Z82.49 Family history of ischemic heart disease and other diseases of the circulatory system
CPT/HCPCS: 75574; 80048; 81025; J1200; J2919; Q9967